=== PATIENT | male | born 1985 | race Caucasian/White ===

== ENCOUNTER 2018-12-11 19:36 | Inpatient (IN) | payer MEDICAID ==
[~2018-12-11] VITALS: Ht 172.7 cm; Wt 79.4 kg
--- NOTE | 2018-12-11 19:50 | NUR ---
PT BIBRA C/O R MIDDLE FINGER SWELLING FOLLOWING INSECT BITE YESTERDAY. SWELLING NOTED, WITH A OPEN WOUND. PT AXO4. RESPIRATIONS EVEN AND UNLABORED. PT PUT ON THE CHANNEL MANAGER AND PULSE OX.
[2018-12-11] MEDS ORDERED: ACETAMINOPHEN ES 500 MG TABLET PO ONE (20:00)
[2018-12-11] MEDS ORDERED: ACETAMINOPHEN ES 500 MG TABLET ONE (20:04)
--- NOTE | 2018-12-11 20:12 | NUR ---
BAR TURNER AT BEDSIDE. LABS DRAWN AND SEN TO LAB.
[2018-12-11 20:18] LABS: HEMATOCRIT 41 % (39-51); HEMOGLOBIN 14.1 g/dL (13.5-17.5); MEAN CORPUSCULAR HGB CONC 34 g/dl (31.0-36.0); MEAN CORPUSCULAR VOLUME 87 fL (80-96); RED BLOOD CELL COUNT(AUTO) 4.73 MIL/uL (4.5-6.0); WHITE BLOOD COUNT (AUTO) 12.8 K/uL (4.3-11.0)
[2018-12-11 20:19] LABS: BASOPHILS # (AUTO) 0.1 /CMM (0.0-0.2); BASOPHILS % (AUTO) 0.5 % (0.0-2.0); EOSINOPHILS % (AUTO) 0.7 % (0.0-6.0); LYMPHOCYTES # (AUTO) 1.6 /CMM (0.8-4.8); LYMPHOCYTES % (AUTO) 12.5 % (20.0-44.0); MONOCYTES % (AUTO) 7.9 % (2.0-12.0); NEUTROPHILS % (AUTO) 78.4 % (43.0-81.0); PLATELET COUNT (AUTO) 269 /CMM (150-450)
[2018-12-11] MEDS ORDERED: VANCOMYCIN 1 GM VIAL ONE (20:20)
[2018-12-11] MEDS ORDERED: VANCOMYCIN 1 GM in IV D5W 250 ML IV ONE (20:30)
[2018-12-11 20:43] LABS: ALBUMIN 3.4 g/dL (3.4-5.0); BILIRUBIN,DIRECT 0.1 mg/dL (0.0-0.2); BILIRUBIN,TOTAL 0.3 mg/dL (0.2-1.0); CALCIUM, SERUM 8.7 mg/dL (8.5-10.1); POTASSIUM 3.7 mmol/L (3.5-5.1); TOTAL PROTEIN, SERUM 7.6 g/dL (6.4-8.2)
--- NOTE | 2018-12-11 20:55 | NUR ---
PT HAVING REDNESS/ITCHY R ARM. ER PA AWARE. WILL CARRY OUT ORDERS.
[2018-12-11] MEDS ORDERED: diphenhydrAMINE HCL 50 MG/ML VIAL ONE (21:03)
--- NOTE | 2018-12-11 21:11 | NUR ---
MS 208-2
[2018-12-11] MEDS ORDERED: diphenhydrAMINE HCL 50 MG/ML VIAL IV ONE (21:30)
[2018-12-11] MEDS ORDERED: ONDANSETRON HCL/PF 4 MG/2 ML VIAL ONE (21:38)
[2018-12-11] MEDS ORDERED: MORPHINE SULFATE INJ 4 MG/ML DISP.SYRIN ONE (21:38)
--- NOTE | 2018-12-11 21:50 | NUR ---
REPORT GIVEN TO WILY SU FOR ADELFO.
[2018-12-11] MEDS ORDERED: TDAP [DIPH/PERTUSSIS/TET] 0.5 ML VIAL IM ONE ×3 (21:53→22:00)
[2018-12-11] MEDS ORDERED: MAG HYDROX/AL HYDROX/SIMETH 30 ML UDC PO PRN (22:00)
[2018-12-11] MEDS ORDERED: ENOXAPARIN SODIUM 40 MG/0.4 ML DISP.SYRIN SQ SCH ×2 (22:00)
[2018-12-11] MEDS ORDERED: ZOLPIDEM TARTRATE 5 MG TABLET PO PRN (22:00)
[2018-12-11] MEDS ORDERED: Z GUARD REMEDY 2 OZ OINT TP PRN (22:00)
[2018-12-11] MEDS ORDERED: MAGNESIUM HYDROXIDE 30 ML UDC PO PRN (22:00)
[2018-12-11] MEDS ORDERED: ONDANSETRON HCL/PF 4 MG/2 ML VIAL IVP ONE (22:00)
[2018-12-11] MEDS ORDERED: ACETAMINOPHEN 325 MG TABLET PO PRN (22:00)
[2018-12-11] MEDS ORDERED: MORPHINE SULFATE INJ 2 MG/ML DISP.SYRIN IV ONE (22:00)
[2018-12-11] MEDS ORDERED: ONDANSETRON HCL/PF 4 MG/2 ML VIAL IVP PRN (22:00)
[2018-12-11 22:03] VITALS: BP 173/100
--- NOTE | 2018-12-11 22:30 | NUR ---
MS/RN OPENING NOTES PT RECEIVED FROM ER VIA ALFRED. A/OX3. ON ROOM AIR, BREATHING EVEN AND UNLABORED. DENIES SOB AND PAIN AT THIS TIME. IV TO LFA PATENT AND INTACT. ORIENTED PT TO ROOM AND CALL LIGHT. BELONGINGS LIST COMPLETED AND PLACED IN THE CHART. PT NOTED TO HAVE A LARGE KNIFE AND SHARP TOOLS. PLACED IN THE SAFE ON MS2. ORIENTED PT TO ROOM AND CALL LIGHT. BED IN LOW/LOCKED POSITION WITH CALL LIGHT IN REACH, HOB ELEVATED AND BILAT. UPPER SIDE RAILS IN PLACE. WILL CONTINUE TO MONITOR
[2018-12-11 23:30] VITALS: BP 173/100
[2018-12-12] VITALS: BP 160/84
--- NOTE | 2018-12-12 01:30 | NUR ---
MS/RN NOTES SURESH IQBAL NP AT BEDSIDE TO ASSESS PT. NOTIFIED HER OF PT'S ELEVATED BP. WILL INPUT ORDERS
[2018-12-12] MEDS: IV NS 0.9% 1,000 ML IV PRN ×2 (01:51→15:48)
[2018-12-12] MEDS: LISINOPRIL (10MG) 10 MG TABLET PO SCH ×2 (02:00→09:01)
[2018-12-12] MEDS: MORPHINE SULFATE INJ 2 MG/ML DISP.SYRIN IV PRN ×3 (04:43→23:51)
--- NOTE | 2018-12-12 04:43 | NUR ---
MS/RN NOTES PT C/O 9/10 PAIN TO RIGHT HAND. ADMINISTERED IV MORPHINE ORDERED. WILL MONITOR FOR EFFECTIVENESS.
[2018-12-12 05:40] VITALS: BP 186/83
[2018-12-12] MEDS: HYDROCODONE/APAP 5/325MG 1 EACH TABLET PO PRN ×3 (05:47→20:06)
--- NOTE | 2018-12-12 05:47 | NUR ---
MS/RN NOTES PT C/O 01/27 PAIN TO RIGHT HAND. ADMINISTERED PRN NORCO 5/325 AND ICE PACK PROVIDED.
[2018-12-12 06:30] LABS: BASOPHILS # (AUTO) 0.1 /CMM (0.0-0.2); BASOPHILS % (AUTO) 0.5 % (0.0-2.0); EOSINOPHILS % (AUTO) 0.9 % (0.0-6.0); HEMATOCRIT 42 % (39-51); HEMOGLOBIN 14.4 g/dL (13.5-17.5); LYMPHOCYTES # (AUTO) 1.9 /CMM (0.8-4.8); LYMPHOCYTES % (AUTO) 15.1 % (20.0-44.0); MEAN CORPUSCULAR HGB CONC 34 g/dl (31.0-36.0); MEAN CORPUSCULAR VOLUME 87 fL (80-96); MONOCYTES # (AUTO) 1.1 /CMM (0.1-1.30); MONOCYTES % (AUTO) 8.5 % (2.0-12.0); NEUTROPHILS # (AUTO) 9.3 /CMM (1.8-8.9); PLATELET COUNT (AUTO) 267 /CMM (150-450); RED BLOOD CELL COUNT(AUTO) 4.85 MIL/uL (4.5-6.0); WHITE BLOOD COUNT (AUTO) 12.5 K/uL (4.3-11.0)
[2018-12-12 06:44] LABS: CALCIUM, SERUM 8.8 mg/dL (8.5-10.1); MAGNESIUM 1.8 mg/dL (1.8-2.4); POTASSIUM 3.9 mmol/L (3.5-5.1)
[2018-12-12] MEDS ORDERED: FEE PK DOSING 1 MIN EA MC ONE (07:33)
--- NOTE | 2018-12-12 07:44 | NUR ---
MS/RN OPENING NOTE PATIENT IN BED IN STABLE CONDITION. A/O X 3. NO SIGNS OF ACUTE DISTRESS. NO COMPLAIN OF PAIN OR DISCOMFORT. NOTED WITH RIGHT 3RD FINGER SWOLLEN AND DRY WOUND, NO DRAINAGE AT THIS TIME. DENIES PAIN TO SITE AT THIS TIME. ALL NEEDS ATTENDED TO. CALL LIGHT WITHIN REACH. WILL CONTINUE TO MONITOR TO ENSURE SAFETY.
[2018-12-12 08:00] VITALS: BP 149/84
--- NOTE | 2018-12-12 08:00 | NUR ---
MS/RN CLOSING NOTES PT ASLEEP, RESPONSIVE TO NAME. REMAINS ON ROOM AIR, BREATHING EVEN AND UNLABORED. DENIES SOB, PAIN TOLERABLE AT THIS TIME. IV TO LFA PATENT AND INTACT. NO SIGNIFICANT CHANGES OVERNIGHT. PAIN MANAGED WITH PRN MEDS. NO SIGNIFICANT CHANGES OVERNIGHT. ALL NEEDS MET. BED IN LOW/LOCKED POSITION WITH CALL LIGHT IN REACH, HOB ELEVATED AND BILAT. UPPER SIDE RAILS IN PLACE. ENDORSED TO DAY SHIFT RN ADELFO.
[2018-12-12] MEDS: VANCOMYCIN 1 GM in IV D5W 250 ML IV SCH ×3 (09:00→23:51)
--- NOTE | 2018-12-12 09:11 | NUR ---
WOUND CARE CONSULT: PT PRESENTS WITH VERY RED SWOLLEN RT THIRD FINGER WITH CRUSTED WOUND. RECOMMEND SURGICAL CONSULT. DR MORENO NOTIFIED OF PLASTIC SURGERY CONSULT REQUEST FOR HAND. NO ACTIVE DRAINAGE AT THIS TIME. PT IS AMBULATORY AND CONTINENT. WILL SEE PRN.
--- NOTE | 2018-12-12 10:35 | NUR ---
Social service consult requested by MALLORY Plascencia for homelessness and drug abuse. Pt. is a 33 year old male who was admitted to [facility] for cellulitis. SW met with pt. bedside. Pt. is alert and oriented x 3. Pt. appears drowsy at times. Pt. is pleasant and cooperative with SW during the assessment. Pt. states he is homeless and has been for about a year. Prior to being homeless, pt. was residing in [place]. SW offered pt. group home placement, however pt. declined stating, " I have been to one of those and I did not like it one bit." Pt. is willing to accept homeless resources upon discharge. Pt. is a methamphetamine user. Pt. last used methamphetamines the day before. Pt. denies drinking alcohol. Pt. smokes a pack of cigarettes per day. 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 Pt. has not been to a drug rehabilitation in the past and is not interested at this time. Pt. is willing to take rehab referrals upon discharge. Pt. denies any psychiatric diagnosis at this time. Pt. denies suicidal and homicidal ideations and visual/auditory hallucinations at this time. SW to give pt. homeless group home resources and drug rehabilitation resources upon discharge. Homeless patient Waiver form to be signed by the pt. upon discharge. No other social service needs are requested at this time. SW is available, if needed.
[2018-12-12] MEDS ORDERED: NEOMY SULF/BACITRAC ZN/POLY 15 GM TUBE TP PRN (13:30)
--- NOTE | 2018-12-12 14:00 | NUR ---
MS/RN SEEN AND EXAMINED BY DR WILKERSON'S Power HODGE FOR XRAY OF RIGHT HAND SECONDARY TO RIGHT MIDDLE FINGER SWELLING AND WOUND.
[2018-12-12 16:00] VITALS: BP 139/86
--- NOTE | 2018-12-12 18:29 | NUR ---
MS/RN CLOSING NOTE PATIENT IN BED IN STABLE CONDITION. A/O X 4. NO SIGNS OF ACUTE DISTRESS. NO COMPLAIN OF PAIN OR DISCOMFORT. PENDING RIGHT HAND X RAY RESULTS. WILL ENDORSE TO PM SHIFT RN WHEN RESULTS AVAILABLE PLEASE NOTIFY WOUND Power HODGE. ALL NEEDS ATTENDED TO AT THIS TIME. CALL LIGHT WITHIN REACH. WILL ENDORSE TO NEXT SHIFT FOR CONTINUITY OF CARE.
--- NOTE | 2018-12-12 19:50 | NUR ---
MS RN NOTE: PATIENT RESTING IN BED, NO ACUTE DISTRESS NOTED. BREATHING EVEN AND UNLABORED, NO SOB NOTED. IV TO LFA IN PLACE, INFUSING NS AT 75ML/HR. BED LOCKED AND IN LOWEST POSITION, CALL LIGHT IN REACH. WILL CONTINUE TO MONITOR.
[2018-12-12 20:12] VITALS: BP 149/101
--- NOTE | 2018-12-12 20:15 | NUR ---
MS RN NOTE: PATIENT COMPLAINS OF PAIN TO RIGHT ARM 12/27, NORCO 5/325 1 TAB ORAL GIVEN PER MD ORDER. WILL CONTINUE TO MONITOR.
[2018-12-13] VITALS: BP 132/88
--- NOTE | 2018-12-13 00:05 | NUR ---
MS RN NOTE: PATIENT COMPLAINS OF PAIN TO RIGHT ARM 9/10, MORPHINE 2MG IV GIVEN PER MD ORDER. WILL CONTINUE TO MONITOR.
[2018-12-13] MEDS: MORPHINE SULFATE INJ 2 MG/ML DISP.SYRIN IV PRN (04:02)
[2018-12-13] MEDS: IV NS 0.9% 1,000 ML IV PRN (04:02)
--- NOTE | 2018-12-13 06:30 | NUR ---
MS RN NOTE: PATIENT RESTING IN BED, NO ACUTE DISTRESS NOTED. BREATHING EVEN AND UNLABORED, NO SOB NOTED. IV TO LFA IN PLACE, INFUSING NS AT 75ML/HR. BED LOCKED AND IN LOWEST POSITION, CALL LIGHT IN REACH. WILL ENDORSE TO DAY NURSE TO CONTINUE WITH PLAN OF CARE.
--- NOTE | 2018-12-13 07:10 | NUR ---
RN OPENING NOTE PT WAS RECEIVED IN BED AT LOWEST AND LOCKED POSITION WITH SIDE RAILS UP X2, A/OX4 BREATHING EVEN AND UNLABORED ON RA, NO CURRENT COMPLAINTS OF ANY PAIN OR DISTRESS NOTED, IV IS PATENT AND INTACT, GF PRESENT AT BEDSIDE, SAFETY PRECAUTIONS IN PLACE, CALL LIGHT WITHIN REACH, WILL MONITOR ACCORDINGLY
[2018-12-13] MEDS: HYDROCODONE/APAP 5/325MG 1 EACH TABLET PO PRN (07:18)
[2018-12-13] MEDS: VANCOMYCIN 1 GM in IV D5W 250 ML IV SCH (07:45)
[2018-12-13 08:00] VITALS: BP 141/86
[2018-12-13 08:20] VITALS: BP 141/86
[2018-12-13] MEDS: LISINOPRIL (10MG) 10 MG TABLET PO SCH (08:20)
[2018-12-13] MEDS ORDERED: LIDOCAINE 1%-EPI 1:100,000 20 ML VIAL TP ONE (10:46)
[2018-12-13] MEDS ORDERED: PIPERACILLIN /TAZOBACTAM 3.375 G in IV D5W 50 ML IV STA (12:16)
--- NOTE | 2018-12-13 13:00 | NUR ---
AMA NOTE PT LEFT WRAY AT THIS TIME DUE TO HIM STATING THAT HE NEEDED TO MOVE HIS STUFF BEFORE HE LOST BECAUSE HE IS HOMELESS. PT WAS INFORMED AND MADE AWARE THAT IT WOULD NOT BE GOOD FOR HIM TO LEAVE SINCE HE JUST GOT DEBRIDEMENT OF HIS RIGHT LONG FINGER AND THAT HE IS ON ABX. HE WAS EDUCATED BUT STILL INSISTED ON LEAVING WRAY. ALL [employer] PAPERWORK WAS PROVIDED TO HIM. HE REFUSED TO HAVE PHOTOS OF HIS SKIN TAKEN. IV AND ID BAND WERE REMOVED. ALL NEEDS WERE ATTENDED TO DURING HIS STAY. HE LEFT WRAY AT THIS TIME. Addendum: 12/13/18 at 1321 by ANNA GUTIERRES RN Unique Id: [id number] ALL BELONGINGS WERE GIVEN AND TAKEN BY THE PATIENT
== END 2018-12-13 13:00 | disposition left against medical advice (07) | DRG 364 ==
LOC: ER 19:43 → MEDSG2 21:31
PROVIDERS: ADMIT Nurse Practitioner Acute Care; ATTEND Nurse Practitioner Acute Care
PROC: 0KBC0ZZ Excision of Right Hand Muscle, Open Approach (ICD-10-PCS; principal; 2018-12-13)
DX: L03.011 Cellulitis of right finger (principal); F14.10 Cocaine abuse, uncomplicated; F17.200 Nicotine dependence, unspecified, uncomplicated; Z59.0 Homelessness; F15.10 Other stimulant abuse, uncomplicated; Z86.14 Personal history of Methicillin resistant Staphylococcus aureus infection; T63.301A Toxic effect of unspecified spider venom, accidental (unintentional), initial encounter; Y92.9 Unspecified place or not applicable; L02.511 Cutaneous abscess of right hand
CPT/HCPCS: 36415; 73130-TC; 80048-TC; 80061-TC; 80076-TC; 80202-TC; 83735-TC; 84100-TC; 85025-TC; 87040-TC; 87070-TC; 87081-TC; 90715; A6407; G0378; J1200; J1650; J2270; J2405; J2543; J3370; J3490; J7030; J7060

== ENCOUNTER 2018-12-13 14:09 | Emergency (ER) | payer MEDICAID ==
[~2018-12-13] VITALS: Ht 177.8 cm; Wt 81.6 kg
--- NOTE | 2018-12-13 14:46 | NUR ---
R HAND PAIN, WENT [facility] FLOOR 45 MINS AGO. DIAGNOSIS CELLULITIS, WAS PRESCRIBED NORCO. HAND IS WRAPPED IN CLEAN GAUZE. PAIN LEVEL 9/10. MADE COMFORTABLE AND READY FOR EVAL.
--- NOTE | 2018-12-13 15:14 | NUR ---
CALLED FOR MED-SURGE BED, TURNED IN MOVE SHEET, AND PAGED CAMERON MAXWELL.
[2018-12-13] MEDS ORDERED: HYDROCODONE/APAP 5/325MG 1 EACH TABLET ONE (15:15)
[2018-12-13] MEDS ORDERED: HYDROCODONE/APAP 5/325MG 1 EACH TABLET PO ONE (15:30)
--- NOTE | 2018-12-13 15:31 | NUR ---
PER ADMITTING, PT WILL BE TRANSFERRED OUT
--- NOTE | 2018-12-13 15:45 | NUR ---
SPOKE WITH SCREED OPERATOR, WALI, FOR [facility]. PT TO BE TRANSFERRED TO [facility] UNDER DR GARRETT, . CALL BACK NUMBER FOR COORDINATOR IS [phone]
--- NOTE | 2018-12-13 15:48 | NUR ---
JOE ACEVEDO ON THE PHONE WITH DR GARRETT AT [facility].
--- NOTE | 2018-12-13 16:11 | NUR ---
TRANSFER INFORMATION: [facility] ROOM 408-2. # FOR REPORT AT [phone], [facility]ION 8 ASK FOR DEEG AREN FONTAINE. AMB AUTH# [id number]. WILL CALL BACK WITH ETA
--- NOTE | 2018-12-13 16:20 | NUR ---
WALI, SIGNAL OPERATOR, CALLED WITH ETA OF 60-90 MINS PER [facility]. WALI CONTACT NUMBER [phone] FAXED FACESHEET TO [phone]
--- NOTE | 2018-12-13 16:39 | NUR ---
PT ASLEEP IN BED, NO COMPLAINTS AT THIS TIME. VSS. WILL CONT TO MONITOR.
--- NOTE | 2018-12-13 18:12 | NUR ---
Patient is resting comfortably in bed with eyes closed. Easily aroused. VSS
--- NOTE | 2018-12-13 18:28 | NUR ---
REPORT GIVEN TO MARZENA AT [facility] FOR ADELFO, AND EMT FROM MED REACH [facility]
[2018-12-13 18:31] VITALS: BP 122/45
== END 2018-12-13 18:43 | disposition short-term general hospital (02) ==
LOC: ER 14:11
DX: L02.511 Cutaneous abscess of right hand (principal); L03.113 Cellulitis of right upper limb; F19.10 Other psychoactive substance abuse, uncomplicated; F17.200 Nicotine dependence, unspecified, uncomplicated; Z59.0 Homelessness